=== PATIENT | male | born 1975 | race Caucasian/White ===

== ENCOUNTER → 2020-10-30 | Outpatient (CLI) | payer OTHER | LOC: KOH-I 08:19 | DX: M25.522 Pain in left elbow (principal) | CPT/HCPCS: 73080 ==

== ENCOUNTER → 2020-11-01 | Outpatient (CLI) | payer OTHER | LOC: KOH-I 08:48 | DX: M79.604 Pain in right leg (principal) | CPT/HCPCS: 93971 ==

== ENCOUNTER 2022-02-04 08:47 | Emergency (ER) | payer OTHER ==
[2022-02-04 09:54] LABS: HEMOGLOBIN 15.5 gm/dl (14.0-17.5); RED BLOOD COUNT 4.93 M/UL (4.20-5.50); WHITE BLOOD COUNT 14.1 K/UL (4.5-11.0)
[2022-02-04] MEDS ORDERED: FLOMAX 0.4 MG0.4 MG PO (12:27)
== END 2022-02-04 12:48 | disposition home or self-care (01) ==
LOC: ER1 08:47
PROVIDERS: Nurse Practitioner
DX: N13.2 Hydronephrosis with renal and ureteral calculous obstruction (principal); E78.5 Hyperlipidemia, unspecified
CPT/HCPCS: 80053; 81001; 83690; 85025; 87086; 96374; 96375; 99284; J1885; J2405